=== PATIENT | male | born 1995 | race Caucasian/White ===

== ENCOUNTER 2018-11-04 21:40 | Emergency (ER) | payer BC ==
[2018-11-04] MEDS ORDERED: Ketorolac 30 MG/ML SDV IVPUSH ONE (21:50)
[2018-11-04] MEDS ORDERED: Pantoprazole 40 MG Vial IVPUSH ONE (21:50)
[2018-11-04] MEDS ORDERED: Aspirin 81 MG Tab.Chew PO ONE (21:50)
[2018-11-04] MEDS ORDERED: Sodium Chloride 0.9% 1,000 ML IV ONE (21:50)
[2018-11-04] MEDS ORDERED: Sodium Chloride 0.9% 10 ML Syringe FLUSH PRN (21:51)
[2018-11-04] MEDS ORDERED: Sodium Chloride 0.9% 2.5 ML Syringe FLUSH PRN (21:51)
--- NOTE | 2018-11-04 21:54 | EDM.PDOC ---
ED HPI GENERAL MEDICAL PROBLEM - General Chief Complaint: Chest Pain Stated Complaint: CHEST PAINS Time Seen by Provider: 11/04/18 21:42 - History of Present Illness INITIAL COMMENTS - FREE TEXT/NARRATIVE: HISTORY AND PHYSICAL: History of present illness: The patient is a 23-year-old male who presents with midsternal chest pain/ pressure which he rates as a 1-2/10 which started about 6:45 PM, 3 hours ago. The patient says he has had 2 prior episodes of this, one in the fall of last year and one in August of this year and he did see his provider at [facility] doctor Plasencia who recommended allergy testing and did not do any cardiac or pulmonary workup. The patient said he did do allergy testing and he came up negative. The patient tells me had a normal day old day with no new activities no trauma and no upper respiratory infection symptoms when at 645 he started experiencing the discomfort. He says he took some antacids and it did not help. He said nothing made it worse or better and it was not associated with diaphoresis nausea vomiting abdominal pain shortness of breath dizziness or lightheadedness. The patient took nothing other than the antacids and currently has pain as described above. The pain is currently not radiating on my evaluation. The patient denies any social history and has no significant family history other than a mother with hypertension. Review of systems: As per history of present illness and below otherwise all systems reviewed and negative. Past medical history: As per history of present illness and as reviewed below otherwise noncontributory. Surgical history: As per history of present illness and as reviewed below otherwise noncontributory. Social history: No reported history of drug or alcohol abuse. Family history: As per history of present illness and as reviewed below otherwise noncontributory. Physical exam: General: Well-developed well-nourished thin man who is nontoxic and vital signs were noted by me HEENT: Atraumatic, normocephalic, negative for conjunctival pallor or scleral icterus, mucous membranes moist, throat clear, neck supple, nontender, trachea midline. Lungs: Clear to auscultation, breath sounds equal bilaterally, chest nontender. Heart: S1S2, regular rate and rhythm no overt murmurs Abdomen: Soft, nondistended, nontender. Negative for masses or hepatosplenomegaly. NABS Pelvis: Stable nontender. Genitourinary: Deferred. Rectal: Deferred. Extremities: Atraumatic, negative for cords or calf pain. Neurovascular unremarkable. No pedal edema or leg asymmetry Neuro: Awake, alert, oriented. Cranial nerves II through XII unremarkable. Cerebellum unremarkable. Motor and sensory unremarkable throughout. Exam nonfocal. Diagnostics: EKG CBC CMP troponin chest x-ray H. pylori Therapeutics: IV O2 monitor IV fluids Toradol Protonix aspirin I discussed all results with the patient and family at bedside and he says that he does feel much improved after the Protonix and the IV fluids. He is now telling me that there is some association with some discomfort that he has on a more regular basis with certain foods. We talked about doing a food journal as this will help his provider on further care. I did offer the patient observation admission and he would prefer to go home and work this up as an outpatient. His risk profile is very low but I did express my concerns to him. Impression: Atypical chest pain Definitive disposition and diagnosis as appropriate pending reevaluation and review of above. chest Pain Score (Numeric/FACES): 2 - Related Data Allergies Allergy/AdvReac Type Severity Reaction Status Date / Time No Known Allergies Allergy Verified 11/04/18 21:53 Home Meds: Home Meds . [No Known Home Meds] 11/04/18 [History] ED ROS GENERAL - Review of Systems Review Of Systems: ROS reveals no pertinent complaints other than HPI. ED EXAM, GENERAL - Physical Exam Exam: See Below (See dictation) Course - Vital Signs Last Recorded V/S: Last Vital Signs Temp 36.3 C 11/04/18 21:40 Pulse 78 11/04/18 22:47 Resp 17 11/04/18 22:47 BP 130/72 11/04/18 22:47 Pulse Ox 98 11/04/18 22:47 - Orders/Labs/Meds Orders: Active Orders 24 hr Category Date Time Status Cardiac Monitoring [RC] . DIRECTED Care 11/04/18 21:50 Active EKG Documentation Completion [RC] STAT Care 11/04/18 21:50 Active Oxygen Therapy, ED [RC] ASDIRECTED Care 11/04/18 21:50 Active Pulse Oximetry [RC] ASDIRECTED Care 11/04/18 21:50 Active Sodium Chloride 0.9% [Saline Flush] Med 11/04/18 21:51 Active 10 ml FLUSH ASDIRECTED PRN Sodium Chloride 0.9% [Saline Flush] Med 11/04/18 21:51 Active 2.5 ml FLUSH ASDIRECTED PRN Saline Lock Insert [OM.PC] Stat Oth 11/04/18 21:50 Ordered Medication Orders Sodium Chloride (Saline Flush) 10 ml FLUSH ASDIRECTED PRN PRN Reason: Keep Vein Open Sodium Chloride (Saline Flush) 2.5 ml FLUSH ASDIRECTED PRN PRN Reason: Keep Vein Open Labs: Laboratory Tests 11/04/18 11/04/18 11/04/18 Range/Units 21:52 21:52 21:52 WBC 8.30 (4.0-11.0) K/uL RBC 5.30 (4.50-5.90) M/uL Hgb 16.2 (13.0-17.0) g/dL Hct 46.1 (38.0-50.0) % MCV 87.0 (80.0-98.0) fL MCH 30.6 (27.0-32.0) pg MCHC 35.1 (31.0-37.0) g/dL RDW Std Deviation 40.2 (28.0-62.0) fl RDW Coeff of Nhung 13 (11.0-15.0) % Plt Count 206 (150-400) K/uL MPV 10.00 (7.40-12.00) fL Neut % (Auto) 41.8 L (48.0-80.0) % Lymph % (Auto) 44.1 H (16.0-40.0) % Stone % (Auto) 8.9 (0.0-15.0) % Eos % (Auto) 4.8 (0.0-7.0) % Baso % (Auto) 0.4 (0.0-1.5) % Neut # (Auto) 3.5 (1.4-5.7) K/uL Lymph # (Auto) 3.7 H (0.6-2.4) K/uL Stone # (Auto) 0.7 (0.0-0.8) K/uL Eos # (Auto) 0.4 (0.0-0.7) K/uL Baso # (Auto) 0.0 (0.0-0.1) K/uL Nucleated RBC % 0.0 /100WBC Nucleated RBCs # 0 K/uL Sodium 141 (136-148) mmol/L Potassium 3.1 L (3.5-5.1) mmol/L Chloride 103 (98-107) mmol/L Carbon Dioxide 28.5 (21.0-32.0) mmol/L BUN 20 H (7.0-18.0) mg/dL Creatinine 0.9 (0.8-1.3) mg/dL Est Cr Clr Drug Dosing 126.20 mL/min Estimated GFR (MDRD) > 60.0 ml/min Glucose 91 (74-106) mg/dL Calcium 9.3 (8.5-10.1) mg/dL Total Bilirubin 1.5 H (0.2-1.0) mg/dL AST 26 (15-37) IU/L ALT 41 (14-63) IU/L Alkaline Phosphatase 95 (46-116) U/L Troponin I < 0.050 (0.000-0.056) ng/mL Total Protein 7.9 (6.4-8.2) g/dL Albumin 4.3 (3.4-5.0) g/dL Globulin 3.6 (2.6-4.0) g/dL Albumin/Globulin Ratio 1.2 (0.9-1.6) H. pylori IgG Antibody NEGATIVE (NEG) Meds: Medications Generic Name Dose Route Start Last Admin Trade Name Darvinq PRN Reason Stop Dose Admin Sodium Chloride 10 ml 11/04/18 21:51 Saline Flush FLUSH ASDIRECTED PRN Keep Vein Open Sodium Chloride 2.5 ml 11/04/18 21:51 Saline Flush FLUSH ASDIRECTED PRN Keep Vein Open Discontinued Medications Generic Name Dose Route Start Last Admin Trade Name Freq PRN Reason Stop Dose Admin Aspirin 324 mg 11/04/18 21:50 11/04/18 22:02 Aspirin PO 11/04/18 21:51 324 mg ONETIME ONE Administration Sodium Chloride 1,000 mls @ 999 mls/hr 11/04/18 21:50 11/04/18 22:01 Normal Saline IV 11/04/18 22:50 999 mls/hr STAT ONE Administration Ketorolac Tromethamine 30 mg 11/04/18 21:50 11/04/18 22:01 Toradol IVPUSH 11/04/18 21:51 30 mg ONETIME ONE Administration Pantoprazole Sodium 80 mg 11/04/18 21:50 11/04/18 22:02 Protonix Iv IVPUSH 11/04/18 21:51 80 mg .BOLUS ONE Administration Departure - Departure Time of Disposition: 22:57 Disposition: Home, Self-Care 01 Condition: Good Clinical Impression: Atypical chest pain - Discharge Information Forms: ED Department Discharge Additional Instructions: The following information is given to patients seen in the emergency department who are being discharged to home. This information is to outline your options for follow-up care. We provide all patients seen in our emergency department with a follow-up referral. The need for follow-up, as well as the timing and circumstances, are variable depending upon the specifics of your emergency department visit. If you don't have a primary care physician on staff, we will provide you with a referral. We always advise you to contact your personal physician following an emergency department visit to inform them of the circumstance of the visit and for follow-up with them and/or the need for any referrals to a consulting specialist. The emergency department will also refer you to a specialist when appropriate. This referral assures that you have the opportunity for followup care with a specialist. All of these measure are taken in an effort to provide you with optimal care, which includes your followup. Under all circumstances we always encourage you to contact your private physician who remains a resource for coordinating your care. When calling for followup care, please make the office aware that this follow-up is from your recent emergency room visit. If for any reason you are refused follow-up, please contact the [facility] emergency department at and ask to speak to the emergency department charge nurse. [address] [place] [address] Please contact her provider at [facility] for further care and evaluation and testing building on today's workup as we discussed. Try to avoid caffeinated products and alcohol consumption. Take medications as prescribed. Please start a symptom journal as we discussed to help your provider in the further care and evaluation that you're going to need. Return to ER as needed and as discussed - My Orders Last 24 Hours: My Active Orders 11/04/18 21:50 Cardiac Monitoring [RC] . DIRECTED EKG Documentation Completion [RC] STAT Oxygen Therapy, ED [RC] ASDIRECTED Pulse Oximetry [RC] ASDIRECTED Saline Lock Insert [OM.PC] Stat 11/04/18 21:51 Sodium Chloride 0.9% [Saline Flush] 10 ml FLUSH ASDIRECTED PRN Sodium Chloride 0.9% [Saline Flush] 2.5 ml FLUSH ASDIRECTED PRN - Assessment/Plan Last 24 Hours: My Active Orders 11/04/18 21:50 Cardiac Monitoring [RC] . DIRECTED EKG Documentation Completion [RC] STAT Oxygen Therapy, ED [RC] ASDIRECTED Pulse Oximetry [RC] ASDIRECTED Saline Lock Insert [OM.PC] Stat 11/04/18 21:51 Sodium Chloride 0.9% [Saline Flush] 10 ml FLUSH ASDIRECTED PRN Sodium Chloride 0.9% [Saline Flush] 2.5 ml FLUSH ASDIRECTED PRN
[2018-11-04 22:20] LABS: CHLORIDE,CL 103 mmol/L (98-107); SODIUM,NA 141 mmol/L (136-148)
--- NOTE | 2018-11-04 22:23 | CR ---
Indication: Chest tightness Technique: Chest 1 view Comparison: None Findings/Impression: Cardiovascular and mediastinum: Heart size and vasculature are normal in caliber and appearance. Mediastinum is within normal limits. Lungs and pleural space: Lungs are clear. No sign of infiltrate or mass. No sign of pleural effusion. No pneumothorax. Bones and soft tissues: No significant findings. Dictated by Cecelia Ruth MD @ Nov 04 2018 10:20PM Signed by Dr. Cecelia Ruth @ Nov 04 2018 10:21PM
== END 2018-11-04 23:11 | disposition home or self-care (01) ==
LOC: MW.ED 21:40
DX: R07.2 Precordial pain (principal)
CPT/HCPCS: 36415; 71045; 80053; 84484; 85025; 86677; 93005; 96361; 96374; 96375; 99285; A9270; C9113; J1885; J7040; 99284